=== PATIENT | female | born 1945 | race African-American/Black ===

== ENCOUNTER 2025-04-17 16:49 | Emergency (ER) | payer OTHER ==
[~2025-04-17] VITALS: Ht 162.6 cm; Wt 59.0 kg
[2025-04-17 16:50] VITALS: BP 185/70; PULSE 120; RESP 18; TEMP 98.2; O2SAT 99
[2025-04-17] MEDS: LIDOCAINE HCL 1% 20ML VIAL INFIL ONE (17:59)
[2025-04-17] MEDS: ACETAMINOPHEN 500MG TABLET PO ONE (18:00)
[2025-04-17] MEDS ORDERED: TOPUD MT (21:56)
[2025-04-17] MEDS ORDERED: BO1 TP (21:57)
== END 2025-04-17 22:31 | disposition home or self-care (01) ==
LOC: ER 16:49
DX: S01.21XA Laceration without foreign body of nose, initial encounter (principal); S01.511A Laceration without foreign body of lip, initial encounter; W01.0XXA Fall on same level from slipping, tripping and stumbling without subsequent striking against object, initial encounter; Y93.01 Activity, walking, marching and hiking; Y92.480 Sidewalk as the place of occurrence of the external cause; Y99.8 Other external cause status
CPT/HCPCS: 99284; 70450; 73120; 70486; 12011; J2003

== ENCOUNTER 2025-04-24 10:05 | Emergency (ER) | payer OTHER ==
[~2025-04-24] VITALS: Ht 157.5 cm; Wt 60.1 kg
[~2025-04-24 10:05] MED LIST: BO1 TP; TOPUD MT
[2025-04-24 10:07] VITALS: O2SAT 98
[2025-04-24 11:22] VITALS: BP 135/61; PULSE 94; RESP 15; TEMP 36.9; O2SAT 98
== END 2025-04-24 11:23 | disposition home or self-care (01) ==
LOC: ER 10:05
DX: S01.21XD Laceration without foreign body of nose, subsequent encounter (principal); S01.511D Laceration without foreign body of lip, subsequent encounter; X58.XXXD Exposure to other specified factors, subsequent encounter
CPT/HCPCS: 99282